=== PATIENT | female | born 1945 | race Caucasian/White ===

== ENCOUNTER → 2017-07-17 10:32 | Outpatient (CLI) | payer MEDICARE, OTHER ==
[2013-11-22 13:06] VITALS: BMI 32.8
[~2017-07-17 10:32] MED LIST: AVAPRO150 MG PO; CELEXA20 MG PO; MOBIC7.5 MG PO
== END | disposition home or self-care (01) ==
LOC: D.RT 10:32
DX: I27.20 Pulmonary hypertension, unspecified (principal); R06.09 Other forms of dyspnea

== ENCOUNTER → 2017-09-01 18:40 | Outpatient (CLI) | payer MEDICARE, OTHER ==
[2013-11-22 13:06] VITALS: BMI 32.8
== END | disposition home or self-care (01) ==
LOC: D.SLEEP 08:00
DX: G47.33 Obstructive sleep apnea (adult) (pediatric) (principal); Z01.812 Encounter for preprocedural laboratory examination

== ENCOUNTER → 2018-01-26 11:21 | Outpatient (CLI) | payer MEDICARE, OTHER ==
[2013-11-22 13:06] VITALS: BMI 32.8
--- NOTE | ~2018-01-26 | EC ---
PATIENT:CHAD DIAZ DATE OF SERVICE: 01/26/18 SEX: F MEDICAL RECORD: [id number] DATE OF : [birth year] LOCATION:[facility] AGE OF PATIENT: 72 ADMISSION DATE: 01/26/18 REFERRING PHYSICIAN: INTERPRETING PHYSICIAN: ALFONSO MULLEN MD ECHOCARDIOGRAM REPORT ECHO CHARGES 4 ECHO COMPLETE Date: 01/26/18 CLINICAL DIAGNOSIS: PULMONARY HTN ECHOCARDIOGRAPHIC MEASUREMENTS (adult normal given) AC root (d.<3.7cm) 2.4 cm LV Septum d (<1.2 cm> 1.3 cm Valve Excursion 1.0 cm LV Septum (systole) 1.3 cm Left Atria (s.<4.0cm> 3.0 cm LVPW d(<1.2cm) 0.7 cm RV (d.<2.3cm) 3.2 cm LVPW (sytole) 0.8 cm LV diastole(<5.6CM) 4.3 cm MV E-F(>70mm/sec) cm LV systole 3.5 cm LVOT Diameter 2.0 cm MV exc.(>10mm) cm Est.ejection fraction (50-75%) % DOPPLER: LVIT cm/sec A 72 cm/sec E 74 cm/sec LA cm/sec RVSP 16.3 mmHg LVOT 101 cm/sec AOP1/2T m/s Asc. Ao 122 cm/sec RVOT 86 cm/sec RA cm/sec PA 93 cm/sec AV Gradient Peak 6.0 mmHg AV Mean 3.4 mmHg AV Area 2.6 cm MV Gradient Peak 4.0 mmHg MV Mean 1.9 mmHg MV Area cm COMMENTS: Wind Turbine Installer: Gladys POLLOCK Department Administrator: Juliet Gramajo TAPE# PACS Pericardial Effusion N DATE OF SERVICE: 01/26/2018 FINDINGS: 1. Left ventricular chamber size is within normal limits. Left ventricular systolic function is normal. Overall ejection fraction estimated at 55% to 60%. 2. Left atrium, right atrium, and right ventricular chamber sizes are within normal limits. 3. Valvular structures have normal structure and motion. 4. Doppler interrogation only reveals moiff-mo-wknn tricuspid regurgitation. No other valvular insufficiency or stenosis. ECHOCARDIOGRAM REPORT [id number] CHAD DIAZ 5. No evidence of pericardial effusion or left ventricular thrombus. TRANSINT:[id number] Voice Confirmation ID: [id number] DOCUMENT ID: [id number] ALFONSO MULLEN MD at 1925 CC: [id number] DICTATION DATE: 01/27/18 1106 CARPET FLOOR LAYER APPRENTICE: 01/27/18 1132 DEP CLI 01/26/18 [place] [id number] [place] [id number]
== END | disposition home or self-care (01) ==
LOC: D.ECHO 11-11 13:00 → D.RT 11-11 14:00 → D.ECHO 11:21
DX: I27.20 Pulmonary hypertension, unspecified (principal); R06.09 Other forms of dyspnea